=== PATIENT | female | born 1950 | race Caucasian/White ===

== ENCOUNTER 2018-01-17 07:58 | Day surgery (SDC) | payer OTHER, MEDICARE ==
[2018-01-17] MEDS ORDERED: MIDAZOLAM HCL 5 MG/5 ML VIAL ONE (08:49)
[2018-01-17] MEDS ORDERED: MEPERIDINE HCL/PF 100 MG/ML AMP ONE (08:49)
[2018-01-17] MEDS ORDERED: SIMETHICONE 40 MG/0.6 ML ML ONE (08:50)
[2018-01-17 16:39] VITALS: BP_SYST 152
== END 2018-01-17 11:00 | disposition home or self-care (01) ==
LOC: SOR 07:58 → SDS 11:00
PROVIDERS: ATTEND Internal Medicine Gastroenterology
DX: D3A.026 Benign carcinoid tumor of the rectum (principal); K64.8 Other hemorrhoids; D50.9 Iron deficiency anemia, unspecified; E11.9 Type 2 diabetes mellitus without complications; Z79.4 Long term (current) use of insulin; Z79.899 Other long term (current) drug therapy; E78.5 Hyperlipidemia, unspecified; I10 Essential (primary) hypertension; Z90.710 Acquired absence of both cervix and uterus
CPT/HCPCS: 82962; G0104; J2175; J2250